=== PATIENT | male | born 1960 | race African-American/Black ===

== ENCOUNTER 2021-06-17 09:14 | Emergency (ER) | payer MEDICARE, MEDICAID ==
[~2021-06-17] VITALS: Ht 182.9 cm; Wt 70.0 kg
[2021-06-17] MEDS ORDERED: LISINOPRIL10 MG PO (09:31)
[2021-06-17] MEDS ORDERED: ELIQUIS5 MG PO (09:31)
[2021-06-17] MEDS ORDERED: VIT C/VIT E PO (09:31)
[2021-06-17 09:54] LABS: IMMATURE GRANULOCYTES 0.2 % (0.0-5.0); MEAN CELL VOLUME 93.4 fL CALC (80.0-100.0); MEAN CORPUSCULAR HGB 29.3 pG CALC (26.0-32.0); MEAN CORPUSCULAR HGB CONC 31.4 g/dL CAL (32.0-36.0); NEUT# 2.51 thou/uL (1.82-7.42); RED BLOOD COUNT 4.57 mill/uL (4.70-6.10); RED CELL DISTRI WIDTH 14.4 % (11.5-15.5)
[2021-06-17 10:06] LABS: HEMATOCRIT 42.7 % (39.0-50.0); HEMOGLOBIN 13.4 g/dl (14.0-18.0)
[2021-06-17 10:11] LABS: ALBUMIN 4.3 g/dL (3.2-5.0); ALKALINE PHOSPHATASE 58 u/l (38-126); BILIRUBIN, TOTAL 0.8 mg/dL (0.0-1.4); BUN 16 mg/dL (9-20); BUN/CREATININE RATIO 13 (12-20 (CALC)); CHLORIDE 103 mmol/l (95-108); CREATININE 1.2 mg/dL (0.7-1.3); ETHYL ALCOHOL 0 mg/dl (0-30); GFR > 60 ML/MIN (>=60 (CALC)); GFR FOR AFR.AMER. > 60 ML/MIN (>=60 (CALC)); LIPASE 49 u/l (23-300); MAGNESIUM 1.9 mg/dL (1.6-2.3); SGOT/AST 21 u/l (17-59); SODIUM 139 mmol/l (137-146)
[2021-06-17 10:15] LABS: ANION GAP 13 (6-22 (CALC)); CARBON DIOXIDE 27 mmol/l (22-30); POTASSIUM 3.5 mmol/l (3.5-5.1)
[2021-06-17 10:16] LABS: ACT PARTIAL THROMBO TIME 29.8 SECONDS (20.0-32.5); PROTHROMBIN TIME 10.4 SECONDS (9.0-12.5)
[2021-06-17 13:05] LABS: URINE BLOOD DIPSTICK NEGATIVE (NEGATIVE); URINE COLOR YELLOW; URINE GLUCOSE - DIPSTICK NEGATIVE (NEGATIVE); URINE KETONE 15 mg/dL (NEGATIVE); URINE LEUK ESTERASE NEGATIVE (NEGATIVE); URINE PH 5.5 (4.5-8.0); URINE PROTEIN - DIPSTICK TRACE mg/dL (NEG-TRACE); URINE SPECIFIC GRAVITY >=1.030
[2021-06-17 13:06] LABS: URINE NITRITE - DIPSTICK NEGATIVE (Negative)
[2021-06-17 13:07] LABS: URINE BILIRUBIN - DIPSTICK NEGATIVE (NEGATIVE)
[2021-06-17] MEDS ORDERED: ULTRAM50 MG PO (13:40)
[2021-06-17 14:02] VITALS: BP 154/89
== END 2021-06-17 14:02 | disposition home or self-care (01) ==
LOC: ED 09:14 → EDBD 09:14 → ED 09:52
DX: S20.212A Contusion of left front wall of thorax, initial encounter (principal); S80.01XA Contusion of right knee, initial encounter; M79.641 Pain in right hand; I10 Essential (primary) hypertension; W01.0XXA Fall on same level from slipping, tripping and stumbling without subsequent striking against object, initial encounter; Y92.002 Bathroom of unspecified non-institutional (private) residence as the place of occurrence of the external cause; Z86.73 Personal history of transient ischemic attack (TIA), and cerebral infarction without residual deficits; Z86.79 Personal history of other diseases of the circulatory system; Z20.822 Contact with and (suspected) exposure to COVID-19; R07.89 Other chest pain; F17.200 Nicotine dependence, unspecified, uncomplicated; W19.XXXA Unspecified fall, initial encounter

== ENCOUNTER 2021-06-17 21:35 | Emergency (ER) | payer MEDICARE, MEDICAID ==
[~2021-06-17] VITALS: Ht 182.9 cm; Wt 72.0 kg
[~2021-06-17 21:35] MED LIST: ELIQUIS5 MG PO; LISINOPRIL10 MG PO; ULTRAM50 MG PO; VIT C/VIT E PO
[2021-06-17 22:08] LABS: HEMATOCRIT 38.6 % (39.0-50.0); HEMOGLOBIN 12.7 g/dl (14.0-18.0); IMMATURE GRANULOCYTES 0.3 % (0.0-5.0); MEAN CELL VOLUME 89.1 fL CALC (80.0-100.0); MEAN CORPUSCULAR HGB 29.3 pG CALC (26.0-32.0); MEAN CORPUSCULAR HGB CONC 32.9 g/dL CAL (32.0-36.0); NEUT# 1.63 thou/uL (1.82-7.42); RED BLOOD COUNT 4.33 mill/uL (4.70-6.10); RED CELL DISTRI WIDTH 14.1 % (11.5-15.5)
[2021-06-17 22:10] LABS: ALKALINE PHOSPHATASE 44 u/l (38-126); BILIRUBIN, TOTAL 0.9 mg/dL (0.0-1.4); BUN 18 mg/dL (9-20); BUN/CREATININE RATIO 15 (12-20 (CALC)); CHLORIDE 106 mmol/l (95-108); CREATININE 1.2 mg/dL (0.7-1.3); GFR > 60 ML/MIN (>=60 (CALC)); GFR FOR AFR.AMER. > 60 ML/MIN (>=60 (CALC)); SGOT/AST 27 u/l (17-59); SODIUM 138 mmol/l (137-146); TOTAL PROTEIN 7.3 g/dL (6.3-8.2)
[2021-06-17 22:12] LABS: ANION GAP 17 (6-22 (CALC)); CARBON DIOXIDE 20 mmol/l (22-30); POTASSIUM 4.8 mmol/l (3.5-5.1)
[2021-06-17 22:22] LABS: MYOGLOBIN 105 ng/mL (0 - 121)
[2021-06-17 22:41] VITALS: BP 138/87
== END 2021-06-17 22:45 | disposition home or self-care (01) ==
LOC: ED 21:35
PROVIDERS: Family Medicine
DX: S20.212A Contusion of left front wall of thorax, initial encounter (principal); I10 Essential (primary) hypertension; F17.200 Nicotine dependence, unspecified, uncomplicated; Z86.73 Personal history of transient ischemic attack (TIA), and cerebral infarction without residual deficits; Z86.79 Personal history of other diseases of the circulatory system; W19.XXXA Unspecified fall, initial encounter

== ENCOUNTER 2021-06-18 14:07 | Observation (INO) | payer MEDICARE, MEDICAID ==
[~2021-06-18] VITALS: Ht 182.9 cm; Wt 71.0 kg
[2021-06-18 15:47] LABS: HEMATOCRIT 36.4 % (39.0-50.0); HEMOGLOBIN 11.7 g/dl (14.0-18.0); MEAN CELL VOLUME 91.9 fL CALC (80.0-100.0); MEAN CORPUSCULAR HGB 29.5 pG CALC (26.0-32.0); MEAN CORPUSCULAR HGB CONC 32.1 g/dL CAL (32.0-36.0); NEUT# 1.08 thou/uL (1.82-7.42); RED BLOOD COUNT 3.96 mill/uL (4.70-6.10); RED CELL DISTRI WIDTH 14.1 % (11.5-15.5)
[2021-06-18 16:04] LABS: ALBUMIN 3.5 g/dL (3.2-5.0); ALKALINE PHOSPHATASE 45 u/l (38-126); BUN 26 mg/dL (9-20); BUN/CREATININE RATIO 17 (12-20 (CALC)); CHLORIDE 105 mmol/l (95-108); CREATININE 1.5 mg/dL (0.7-1.3); GFR 48 ML/MIN (>=60 (CALC)); GFR FOR AFR.AMER. 58 ML/MIN (>=60 (CALC)); SGOT/AST 22 u/l (17-59); SODIUM 138 mmol/l (137-146); TOTAL PROTEIN 6.7 g/dL (6.3-8.2)
[2021-06-18 16:12] LABS: ANION GAP 10 (6-22 (CALC)); BILIRUBIN, TOTAL 0.5 mg/dL (0.0-1.4); CARBON DIOXIDE 26 mmol/l (22-30); POTASSIUM 3.3 mmol/l (3.5-5.1)
[2021-06-18 20:26] VITALS: BP 145/86
[2021-06-19 00:20] VITALS: BP 119/78
[2021-06-19 05:24] VITALS: BP 136/86
[2021-06-19 06:12] LABS: HEMATOCRIT 34.9 % (39.0-50.0); HEMOGLOBIN 11.4 g/dl (14.0-18.0); MEAN CELL VOLUME 90.9 fL CALC (80.0-100.0); MEAN CORPUSCULAR HGB 29.7 pG CALC (26.0-32.0); MEAN CORPUSCULAR HGB CONC 32.7 g/dL CAL (32.0-36.0); RED BLOOD COUNT 3.84 mill/uL (4.70-6.10)
[2021-06-19 06:33] LABS: ANION GAP 10 (6-22 (CALC)); BUN 21 mg/dL (9-20); BUN/CREATININE RATIO 20 (12-20 (CALC)); CALCULATED LDLCHOLESTEROL 49 mg/dL (62-129 (CALC)); CARBON DIOXIDE 23 mmol/l (22-30); CHLORIDE 107 mmol/l (95-108); CHOLESTEROL HDL RATIO 3.5 (<4.4 (CALC)); CREATININE 1.1 mg/dL (0.7-1.3); GFR > 60 ML/MIN (>=60 (CALC)); GFR FOR AFR.AMER. > 60 ML/MIN (>=60 (CALC)); HDL CHOLESTEROL 26 mg/dL (>=40); MAGNESIUM 1.8 mg/dL (1.6-2.3); POTASSIUM 3.5 mmol/l (3.5-5.1); SODIUM 136 mmol/l (137-146); TOTAL CHOLESTEROL 89 mg/dl (0-199); TOTAL TRIGLYCERIDES 73 mg/dl (30-149); VLDL CHOLESTROL 15 mg/dl (4-45 (CALC))
[2021-06-19 07:55] VITALS: BP 130/81
[2021-06-19 10:29] VITALS: BP 126/84
[2021-06-19 14:30] VITALS: BP 121/84
[2021-06-19 19:00] VITALS: BP 129/82
[2021-06-20 00:09] VITALS: BP 137/87
[2021-06-20 04:00] VITALS: BP 146/83
[2021-06-20 08:32] VITALS: BP 157/98
[2021-06-21] MEDS ORDERED: ZPAK PO (00:35)
== END 2021-06-20 10:40 | disposition home or self-care (01) ==
LOC: ED 14:07 → ED-I 15:31 → ED 16:24 → MS2 16:25
PROVIDERS: Family Medicine; ADMIT Hospitalist; ATTEND Hospitalist
DX: S20.212A Contusion of left front wall of thorax, initial encounter (principal); S80.01XA Contusion of right knee, initial encounter; I10 Essential (primary) hypertension; I69.354 Hemiplegia and hemiparesis following cerebral infarction affecting left non-dominant side; W19.XXXA Unspecified fall, initial encounter; Z86.79 Personal history of other diseases of the circulatory system; Z20.822 Contact with and (suspected) exposure to COVID-19; R07.89 Other chest pain
CPT/HCPCS: G0378

== ENCOUNTER 2021-06-20 20:37 | Emergency (ER) | payer MEDICARE, MEDICAID ==
[~2021-06-20] VITALS: Ht 182.9 cm; Wt 71.8 kg
[2021-06-20 21:51] LABS: HEMATOCRIT 34.3 % (39.0-50.0); HEMOGLOBIN 11.1 g/dl (14.0-18.0); MEAN CELL VOLUME 89.8 fL CALC (80.0-100.0); MEAN CORPUSCULAR HGB 29.1 pG CALC (26.0-32.0); MEAN CORPUSCULAR HGB CONC 32.4 g/dL CAL (32.0-36.0); NEUT# 1.46 thou/uL (1.82-7.42); RED BLOOD COUNT 3.82 mill/uL (4.70-6.10); RED CELL DISTRI WIDTH 13.5 % (11.5-15.5); URINE BILIRUBIN - DIPSTICK NEGATIVE (NEGATIVE); URINE BLOOD DIPSTICK NEGATIVE (NEGATIVE); URINE COLOR YELLOW; URINE GLUCOSE - DIPSTICK NEGATIVE (NEGATIVE); URINE KETONE NEGATIVE (NEGATIVE); URINE LEUK ESTERASE NEGATIVE (NEGATIVE); URINE PROTEIN - DIPSTICK NEGATIVE (NEG-TRACE); URINE SPECIFIC GRAVITY 1.025
[2021-06-20 21:53] LABS: URINE NITRITE - DIPSTICK NEGATIVE (Negative)
[2021-06-20 22:07] LABS: PROTHROMBIN TIME 10.4 SECONDS (9.0-12.5)
[2021-06-20 22:10] LABS: ALBUMIN 3.4 g/dL (3.2-5.0); ALKALINE PHOSPHATASE 44 u/l (38-126); ANION GAP 9 (6-22 (CALC)); BILIRUBIN, TOTAL 0.4 mg/dL (0.0-1.4); BUN 16 mg/dL (9-20); BUN/CREATININE RATIO 15 (12-20 (CALC)); CARBON DIOXIDE 27 mmol/l (22-30); CHLORIDE 107 mmol/l (95-108); CREATININE 1.1 mg/dL (0.7-1.3); GFR > 60 ML/MIN (>=60 (CALC)); GFR FOR AFR.AMER. > 60 ML/MIN (>=60 (CALC)); LIPASE 77 u/l (23-300); POTASSIUM 3.5 mmol/l (3.5-5.1); SGOT/AST 20 u/l (17-59); SODIUM 139 mmol/l (137-146); TOTAL PROTEIN 6.5 g/dL (6.3-8.2)
[2021-06-21] MEDS ORDERED: ZPAK PO (00:35)
[2021-06-21 01:45] VITALS: BP 145/89
--- NOTE | 2021-06-22 08:25 | NUR ---
PRELIMINARY BLOOD CX SHOWS GRAM POSITIVE COCCI IN [address] SALDANA. STATES LIKELY CONTAMINANT, WOULD LIKE US TO FOLLOW UP WITH FINAL RESULTS.
--- NOTE | 2021-06-23 13:50 | NUR ---
FINAL BLOOD CULTURE RESULTS CALLED TO . CONTAMINATION NO NEW ORDERS
== END 2021-06-21 01:45 | disposition home or self-care (01) ==
LOC: ED 20:37
DX: R07.89 Other chest pain (principal); J18.9 Pneumonia, unspecified organism; F14.10 Cocaine abuse, uncomplicated; I10 Essential (primary) hypertension; F17.200 Nicotine dependence, unspecified, uncomplicated; Z86.73 Personal history of transient ischemic attack (TIA), and cerebral infarction without residual deficits; Z20.822 Contact with and (suspected) exposure to COVID-19
CPT/HCPCS: Q9967

== ENCOUNTER 2021-06-21 02:57 | Emergency (ER) | payer MEDICARE, MEDICAID ==
[~2021-06-21] VITALS: Ht 182.9 cm; Wt 78.0 kg
[~2021-06-21 02:57] MED LIST changes: +ZPAK PO
[2021-06-21 08:22] VITALS: BP 160/98
== END 2021-06-21 08:22 | disposition home or self-care (01) ==
LOC: ED 02:57
DX: R07.89 Other chest pain (principal); F41.9 Anxiety disorder, unspecified; I10 Essential (primary) hypertension; F17.200 Nicotine dependence, unspecified, uncomplicated; Z86.73 Personal history of transient ischemic attack (TIA), and cerebral infarction without residual deficits